=== PATIENT | male | born 1995 | race Caucasian/White ===

== ENCOUNTER 2017-10-04 14:49 | Emergency (ER) | payer MEDICAID | END 2017-10-04 16:33 | disposition home or self-care (01) | LOC: D.ER 14:49 | DX: J06.9 Acute upper respiratory infection, unspecified (principal); F90.9 Attention-deficit hyperactivity disorder, unspecified type; M32.9 Systemic lupus erythematosus, unspecified ==

== ENCOUNTER 2018-03-17 23:10 | Emergency (ER) | payer MEDICAID ==
[~2018-03-17] VITALS: Ht 182.9 cm; Wt 61.4 kg
[2018-03-17 23:11] VITALS: Ht 182.9 cm; Wt 61.4 kg
[2018-03-18 00:24] LABS: BASOPHILS 0.1 % (0-2); EOSINOPHILS 0.1 % (0-7); IMMATURE GRANULOCYTES 0.3 % (0-5); LYMPHOCYTES 6.4 % (15-50); MCH 30.7 pg (26.0-34.0); MCHC 34.8 g/dL (31.0-37.0); MCV 88.3 fL (80.0-100.0); MEAN PLATELET VOLUME 9.6 fL (7.4-10.4); MONOCYTES 9.3 % (2-11); NEUTROPHILS 83.8 % (40-80); RBC 5.21 10x6/uL (4.20-6.10); RDW 12.3 % (11.5-14.5); WBC 17.2 10x3/uL (4.8-10.8)
[2018-03-18 00:25] LABS: PLATELET COUNT 229 10x3/uL (130-400)
[2018-03-18 00:39] LABS: ALBUMIN 3.4 g/dL (3.4-5.0); ALKALINE PHOSPHATASE 170 U/L (46-116); ALT (SGPT) 128 U/L (10-68); BILIRUBIN - TOTAL 0.27 mg/dL (0.2-1.3); CALC OSMOLALITY 261 mosm/kg (275-300); CALCIUM 8.5 mg/dL (8.5-10.1); CARBON DIOXIDE 29.9 mmol/L (21.0-32.0); CHLORIDE - SERUM 99 mmol/L (98-107); GLUCOSE 96 mg/dL (74-106); POTASSIUM - SERUM 3.9 mmol/L (3.5-5.1); PROTEIN - SERUM 7.5 g/dL (6.4-8.2); SODIUM 133 mmol/L (136-145); eGFR NON AFRICAN AMERICAN > 90 mL/min (90-120)
[2018-03-18 00:48] LABS: UREA NITROGEN 5 mg/dL (7-18)
[2018-03-18] MEDS ORDERED: ZOFRAN4 MG PO (02:23)
[2018-03-18] MEDS ORDERED: CIPRO500 MG PO (02:23)
[2018-03-18] MEDS ORDERED: FLAGYL500 MG PO (02:23)
[2018-03-18 04:26] VITALS: BP 137/77
== END 2018-03-18 04:26 | disposition home or self-care (01) ==
LOC: D.ER 23:10
PROVIDERS: Family Medicine
DX: K52.9 Noninfective gastroenteritis and colitis, unspecified (principal); R50.9 Fever, unspecified

== ENCOUNTER 2018-08-26 08:06 | Emergency (ER) | payer BC ==
[~2018-08-26] VITALS: Ht 182.9 cm; Wt 65.9 kg
[~2018-08-26 08:06] MED LIST: CIPRO500 MG PO; FLAGYL500 MG PO; ZOFRAN4 MG PO
[2018-08-26 08:24] VITALS: BP 141/76; Ht 182.9 cm; Wt 65.9 kg
[2018-08-26 08:58] LABS: BASOPHILS 0.3 % (0-2); EOSINOPHILS 3.1 % (0-7); HEMATOCRIT 43.2 % (42.0-54.0); HEMOGLOBIN 14.5 g/dL (13.5-17.5); IMMATURE GRANULOCYTES 0.2 % (0-5); LYMPHOCYTES 31.3 % (15-50); MCH 30.1 pg (26.0-34.0); MCHC 33.6 g/dL (31.0-37.0); MCV 89.6 fL (80.0-100.0); MEAN PLATELET VOLUME 9.5 fL (7.4-10.4); MONOCYTES 12.8 % (2-11); NEUTROPHILS 52.3 % (40-80); PLATELET COUNT 201 10x3/uL (130-400); RBC 4.82 10x6/uL (4.20-6.10); RDW 13.3 % (11.5-14.5); WBC 6.2 10x3/uL (4.8-10.8)
[2018-08-26 09:08] LABS: ALBUMIN 3.7 g/dL (3.4-5.0); ALKALINE PHOSPHATASE 106 U/L (46-116); ALT (SGPT) 37 U/L (10-68); BILIRUBIN - TOTAL 0.33 mg/dL (0.2-1.3); CALC OSMOLALITY 283 mosm/kg (275-300); CALCIUM 8.9 mg/dL (8.5-10.1); CARBON DIOXIDE 31.3 mmol/L (21.0-32.0); CHLORIDE - SERUM 105 mmol/L (98-107); GLUCOSE 98 mg/dL (74-106); POTASSIUM - SERUM 3.9 mmol/L (3.5-5.1); SODIUM 143 mmol/L (136-145); UREA NITROGEN 10 mg/dL (7-18); eGFR NON AFRICAN AMERICAN > 90 mL/min (90-120)
[2018-08-26 09:11] LABS: AMYLASE - SERUM 40 U/L (25-115); LIPASE 119 U/L (73-393)
[2018-08-26 09:12] LABS: TROPONIN-I < 0.017 ng/mL (0.000-0.060)
== END 2018-08-26 09:45 | disposition other institution (70) ==
LOC: D.ER 08:06
PROVIDERS: Family Medicine
DX: G40.89 Other seizures (principal)